=== PATIENT | female | born 1940 | race Caucasian/White ===

== ENCOUNTER 2016-09-14 09:48 | Inpatient (IN) | payer MEDICARE, OTHER ==
[2016-09-14] MEDS ORDERED: Acetaminophen 325 MG Tab PO PRN (11:19)
[2016-09-14] MEDS ORDERED: Ondansetron 4 MG Tab.DIS PO PRN (11:19)
[2016-09-14] MEDS ORDERED: Sodium Chloride 0.9% 10 ML Syringe FLUSH PRN (11:19)
[2016-09-14] MEDS ORDERED: Sodium Chloride 0.9% 1,000 ML IV SCH (11:30)
[2016-09-14] MEDS: cefTRIAXone 1 GM in Sodium Chloride 0.9% 50 ML IV SCH (12:25)
[2016-09-14] MEDS: NS + KCl 20mEq/L 1,000 ML IV SCH ×2 (12:29→20:56)
--- NOTE | 2016-09-14 12:42 | PCM.HP ---
H&P History of Present Illness - General Date of Service: 09/14/16 Admit Problem/Dx: Admission Diagnosis/Problem Admission Diagnosis/Problem Fever Source of Information: Patient History Limitations: Reports: No limitations - History of Present Illness Initial Comments - Free Text/Narative: This is a 75-year-old female patient that presented to the clinic to see Dr. Jules today. She has 2 day history of fevers, chills, diaphoresis. She denies nasal congestion, sore throat, cough. She states she says her shortness of breath for about 4 months. She recently had a cardiac workup that was negative. She had a CBC and UA in the clinic. The CBC was normal and the UA showed a solid of microscopic hematuria. No pyuria. She had chest x-ray that was reported as normal by Dr. Jules. She's had no exposures. She had one episode of emesis. She has some epigastric pain. No diarrhea and some constipation. No dysuria, pyuria, hematuria, vaginal discharge. Epigastric Pain Score (Numeric/FACES): 1 - Related Data Allergies/Adverse Reactions: Allergies Allergy/AdvReac Type Severity Reaction Status Date / Time azithromycin Allergy Nausea and Verified 09/14/16 10:48 Vomiting Home Medications: Home Meds Ascorbate Calcium [Vitamin C] 1,000 mg PO BID 11/14/13 [History] Aspirin [Adult Low Dose Aspirin EC] 81 mg PO BEDTIME 11/14/13 [History] Benazepril [Lotensin] 40 mg PO DAILY 11/14/13 [History] Calcium Carbonate/Vitamin D3 [Caltrate 600+D] 1 tab PO BID 11/14/13 [History] Docusate Sodium [Colace] 100 mg PO BEDTIME 11/14/13 [History] Ketotifen [Ketotifen 0.025% Ophth Soln] 1 drop EYEBOTH BID 11/14/13 [History] Multivitamin [Multivitamins] 1 each PO DAILY 11/14/13 [History] Atenolol/Chlorthalidone [Tenoretic 100] 1 tab PO DAILY 09/14/16 [History] Fish Oil/DHA/EPA [Fish Oil 1,200 MG] 1,200 mg PO BID 09/14/16 [History] Glucosam/Chondroit/C/Manganese [Cosamin Ds Capsule] 1 tab PO BID 09/14/16 [ History] L.acidoph,Paracasei, B.lactis [Probiotic] 1 each PO DAILY 09/14/16 [History] Magnesium Oxide/Mag AA Chelate [Magnesium] 300 mg PO DAILY 09/14/16 [History] Potassium Chloride [Klor-Con 10] 1 tab PO DAILY 09/14/16 [History] Rosuvastatin [Crestor] 10 mg PO BEDTIME 09/14/16 [History] amLODIPine [Norvasc] 7.5 mg PO DAILY 09/14/16 [History] hydrALAZINE [Apresoline] 25 mg PO BID 09/14/16 [History] Past Medical History Cardiovascular History: Reports: Hypertension Gastrointestinal History: Reports: Hemorrhoids Genitourinary History: Reports: Urinary incontinence [employer] History: Reports: Musculoskeletal History: Reports: Osteoarthritis Endocrine/Metabolic History: Reports: Obesity/BMI 30+ - Infectious Disease History Infectious Disease History: Reports: Chicken pox, Measles, Mumps, Shingles - Past Surgical History HEENT Surgical History: Reports: Cataract surgery, Detached retina GI Surgical History: Reports: Colonoscopy Female Surgical History: Reports: Hysterectomy Social & Family History - Family History Family Medical History: Noncontributory - Tobacco Use Smoking Status *Q: Never Smoker Second Hand Smoke Exposure: No - Caffeine Use Caffeine Use: Reports: Tea Other Caffeine Use: 1-2 cups - Alcohol Use Days Per Week of Alcohol Use: 0 - Recreational Drug Use Recreational Drug Use: No H&P Review of Systems - Review of Systems: Review Of Systems: See Below General: Reports: fever, chills, weakness, fatigue, night sweats, diaphoresis, decreased appetite, weight loss HEENT: Reports: no symptoms Pulmonary: Reports: Shortness of Breath. Denies: Wheezing, Pleuritic Chest Pain , Cough, Sputum, Hemoptysis Cardiovascular: Reports: no symptoms Gastrointestinal: Reports: Abdominal pain, Constipation, Vomiting. Denies: Black stool, Bloody stool, Difficulty swallowing, Hematochezia, Melena, Nausea Genitourinary: Reports: other (Incontinence that is chronic) Musculoskeletal: Reports: no symptoms, other (Arthralgia but no myalgias) Skin: Reports: no symptoms Psychiatric: Reports: no symptoms Neurological: Reports: No Symptoms Hematologic/Lymphatic: Reports: no symptoms Immunologic: Reports: no symptoms Exam - Exam Exam: See Below - Vital Signs Vital Signs: Last Vital Signs Temp 98.8 F 09/14/16 10:08 Pulse 59 L 09/14/16 10:08 Resp 16 09/14/16 10:08 BP 134/54 L 09/14/16 10:08 Pulse Ox 94 L 09/14/16 10:08 Weight: 203 lb 14.4 oz - Exam General: alert, oriented, cooperative. No: mild distress, moderate distress HEENT: PERRLA, Hearing intact, Mucosa moist & pink, Nares patent, Normal nasal septum, Posterior pharynx clear, Conjunctiva clear, EOMI, EACs clear, TMs clear Neck: supple, trachea midline. No: carotid bruit Lungs: Clear to auscultation, Normal respiratory effort. No: Rales, Rhonchi Cardiovascular: regular rate, regular rhythm, normal S1, normal S2. No: systolic murmur, diastolic murmur Abdomen: normal bowel sounds, soft, tenderness (Epigastrium). No: organomegaly , guarding, rigidity, rebound Back Exam: normal inspection, full range of motion Extremities: normal inspection. No: edema Skin: warm, dry, intact. No: rash, ecchymosis, wound Neuro Extensive - Mental Status: alert, oriented x3, normal mood/affect, normal cognition Neuro Extensive - Motor, Sensory, Reflexes: normal gait Psychiatric: alert, normal affect, normal mood - Patient Data Lab Results last 24 hrs: Laboratory Results - last 24 hr 09/14/16 09/14/16 Range/Units 11:40 11:40 D-Dimer, Quantitative 1920 H (100-400) ng/mL Sodium 123 L (135-145) mmol/L Potassium 2.5 L* D (3.5-5.3) mmol/L Chloride 90 L D (100-110) mmol/L Carbon Dioxide 25 (23-29) mmol/L BUN 14 (8-23) mg/dL Creatinine 0.6 (0.6-1.3) mg/dL Est Cr Clr Drug Dosing 59.98 mL/min Estimated GFR (MDRD) > 60 (>60) BUN/Creatinine Ratio 23.3 H (9-20) Glucose 151 H (80-116) mg/dL Calcium 8.6 (8.6-10.2) mg/dL Total Bilirubin 0.9 (0.1-1.3) mg/dL AST 65 H D (5-27) IU/L ALT 64 H D (14-26) IU/L Alkaline Phosphatase 51 L (56-112) IU/L Total Protein 7.3 (6.0-8.0) g/dL Albumin 3.4 (3.2-4.6) g/dL Globulin 3.9 g/dL Albumin/Globulin Ratio 0.9 Result Diagrams: 09/14/16 11:40 *Q Meaningful Use (ADM) - VTE *Q VTE Criteria *Q: - Stroke *Q Stroke Criteria *Q: - AMI *Q AMI Criteria *Q: - Problem List (1) Fever and chills SNOMED Code(s): 314159505 ICD Code: R50.9 - FEVER, UNSPECIFIED Status: Acute Current Visit: Yes (2) Epigastric pain SNOMED Code(s): 58812961 ICD Code: R10.13 - EPIGASTRIC PAIN Status: Acute Current Visit: Yes Problem List Initiated/Reviewed/Updated: Yes Orders Last 24hrs: Active Orders 24 hr Category Date Time Status Patient Status [ADT] Routine ADT 09/14/16 11:19 Active Height and Weight [RC] DAILY Care 09/14/16 11:19 Active May Shower [RC] ASDIRECTED Care 09/14/16 11:19 Active Oxygen Therapy [RC] PRN Care 09/14/16 11:19 Active Up With Assistance [RC] ASDIRECTED Care 09/14/16 11:19 Active VTE/DVT Education [RC] Per Unit Routine Care 09/14/16 11:19 Active Vital Signs [RC] Q4H Care 09/14/16 11:19 Active Regular Diet [DIET] Diet 09/14/16 Lunch Active CULTURE BLOOD [BC] Urgent Lab 09/14/16 11:40 Received CULTURE BLOOD [BC] Urgent Lab 09/14/16 11:45 Received CULTURE URINE [RM] Stat Lab 09/14/16 11:19 Uncollected Acetaminophen [Tylenol] Med 09/14/16 11:19 Active 650 mg PO Q4H PRN Ascorbic Acid [Vitamin C] Med 09/14/16 21:00 Active 1,000 mg PO BID Aspirin [Halfprin] Med 09/14/16 21:00 Active 81 mg PO BEDTIME Benazepril [Lotensin] Med 09/15/16 09:00 Active 40 mg PO DAILY Calcium Carbonate/Vitamin D3 [Calcium Carbonate/Vitamin Med 09/14/16 21:00 Active D 1250 MG-200 Unit] 1 tab PO BID Docusate Sodium [Colace] Med 09/14/16 21:00 Active 100 mg PO BEDTIME Ketotifen [Ketotifen 0.025% Ophth Soln] Med 09/14/16 21:00 Active 0 ml EYEBOTH BID Multivitamins [Tab-A-Sarath] Med 09/15/16 09:00 Active 1 tab PO DAILY NS + KCl 20mEq/L [Normal Saline with 20 mEq KCl] 1,000 Med 09/14/16 12:15 Active ml IV Q8H Ondansetron [Zofran ODT] Med 09/14/16 11:19 Active 4 mg PO Q4H PRN Sodium Chloride 0.9% [Saline Flush] Med 09/14/16 11:19 Active 10 ml FLUSH ASDIRECTED PRN cefTRIAXone [Rocephin] 1 gm Med 09/14/16 12:00 Active Sodium Chloride 0.9% [Normal Saline] 50 ml IV Q24H Blood Culture x2 Reflex Set [OM.PC] Urgent Oth 09/14/16 11:19 Ordered Peripheral IV Insertion Adult [OM.PC] Routine Oth 09/14/16 11:19 Ordered Sequential Compression Device [OM.PC] Per Unit Routine Oth 09/14/16 11:20 Ordered Resuscitation Status Routine Resus Stat 09/14/16 11:19 Ordered Medication Orders Acetaminophen (Tylenol) 650 mg PO Q4H PRN PRN Reason: Pain (Mild 1-3)/fever Ascorbic Acid (Vitamin C) 1,000 mg PO BID [facility] Aspirin (Halfprin) 81 mg PO BEDTIME [facility] Benazepril HCl (Lotensin) 40 mg PO DAILY [facility] Calcium Carbonate (Calcium Carbonate/Vitamin D 1250 Mg-200 Unit) 1 tab PO BID [facility] Docusate Sodium (Colace) 100 mg PO BEDTIME [facility] Ceftriaxone Sodium 1 gm/ (Sodium Chloride) 50 mls @ 100 mls/hr IV Q24H [facility] Last Admin: 09/14/16 12:25 Dose: 100 mls/hr Potassium Chloride/Sodium Chloride (Normal Saline With 20 Meq Kcl) 1,000 mls @ 125 mls/hr IV Q8H [facility] Last Admin: 09/14/16 12:29 Dose: 125 mls/hr Ketotifen Fumarate (Ketotifen 0.025% Ophth Soln) 0 ml EYEBOTH BID [facility] Multivitamins/Minerals/Vitamin C (Tab-A-Sarath) 1 tab PO DAILY [facility] Ondansetron HCl (Zofran Odt) 4 mg PO Q4H PRN PRN Reason: nausea, able to take PO Sodium Chloride (Saline Flush) 10 ml FLUSH ASDIRECTED PRN PRN Reason: Keep Vein Open Last Admin: 09/14/16 12:24 Dose: 10 ml Assessment/Plan Comment:: [address] an inpatient. Dr. Jules is worried about sepsis. 2. Start Rocephin 1 g IV 3. Blood cultures x2, chem 12. CBC was done in the clinic which is normal. UA in the clinic only showed microscopic hematuria. 4. Discussed the best rectus fascia is a full code. 5. BTE prophylaxis 6. D-dimer because of shortness of breath. Is positive consider CT of the lungs. 7. Consider CT of the abdomen and or ultrasound depending on liver functions. 8. IV fluids with a regular diet. 8. Up ad lionel.
[2016-09-14] MEDS: Enoxaparin 30 MG/0.3 ML Syringe SUBCUT SCH (14:32)
[2016-09-14] MEDS ORDERED: Iopamidol 755 Mg/ML 100 ML Bottle IV ONE (14:36)
[2016-09-14] MEDS: Calcium Carbonate/Vitamin D3 1250 MG-200 Unit Tab PO SCH (20:14)
[2016-09-14] MEDS: Docusate Sodium 100 MG Cap PO SCH (20:14)
[2016-09-14] MEDS: Aspirin 81 MG Tab.EC PO SCH (20:15)
[2016-09-14] MEDS: Ketotifen 0.025% Ophth Soln 5 ML Bottle EYEBOTH SCH (20:15)
[2016-09-14] MEDS: Ascorbic Acid 500 MG Tab PO SCH (20:16)
[2016-09-14] MEDS: hydrALAZINE 25 MG Tab PO SCH (20:21)
[2016-09-15] MEDS: NS + KCl 20mEq/L 1,000 ML IV SCH ×4 (05:14→19:14)
--- NOTE | 2016-09-15 08:02 | CT ---
INDICATION: Fever, chills, shortness of breath times four months, increased D- dimer, question PE. CT ANGIOGRAPHY OF CHEST WITH CONTRAST: Spiral 1.25 mm axial sections were obtained through the chest with sagittal and coronal reconstructions and 100 mL Isovue 370 at 2.5 mL/second and revealed the heart to be somewhat enlarged with coronary artery disease - calcifications. There is some increased density at the anterolateral lung base - left lower lobe , which may represent atelectasis, fibrosis, or possibly minimal pneumonia and localized pleural reaction. Fibrosis is felt to be most likely, as other areas of subpleural density compatible with fibrosis are noted in the middle lobe and lower lobes in general. Otherwise, a definite active infiltrate or effusion was not identified. No nodular masses were identified. No evidence of pulmonary embolus was seen. No mediastinal masses were suggested. Calcifications are noted at the aortic arch. IMPRESSION: 1. No evidence of pulmonary embolus. 2. Cannot exclude minimal patchy pneumonia, fibrosis, atelectasis, and possibly minimal pleuritis at the left lung base - anterolateral aspect of the anterior basilar segment of the left lower lobe at the lingula. Total exam DLP = 2029.59 mGy-cm. Report was called to Dr. Rousseau at 1753 hours on 09/14/2016. [facility]
--- NOTE | 2016-09-15 08:38 | CT ---
INDICATION: Abdominal pain with fever and chills, shortness of breath times four months, increased D-dimer, question PE. CT ABDOMEN AND CT PELVIS: Spiral 2.5 mm axial sections were obtained through the abdomen and pelvis with oral and IV contrast with sagittal and coronal reconstructions. A tiny probable benign cyst is noted at the anterior aspect of the lower portion of the right lobe of the liver with no other focal defects, enlargement , or abnormal density suggested, involving the liver. No gallstones are demonstrated. No finding to strongly suggest cholecystitis was seen. There are suggested tiny and small cysts in the head of the pancreas of questionable significance. They are small enough to be difficult to categorize as simple cysts. Followup with CT with contrast in 3 months is recommended to evaluate for change. The pancreas was otherwise unremarkable. The adrenal glands and spleen appeared normal. The left kidney showed some evidence of renal cortical scarring with focal defects in the cortex. At the right kidney, there are low density lesions, which may represent cystic structures in the mid pole area, measuring together approximately 26.5 mm. The more posterior low density lesion measured 15.4 mm. The more anterior lesion in the right kidney mid pole measured 11.5 mm. A density of 30 Hounsfield units was noted, raising question of other than simple cyst. However, likely these do represent cystic structures. They could be followed up also. A much smaller almost definite benign cystic structure is noted off the medial anterior cortex of the lower pole of the right kidney. The right kidney was otherwise unremarkable. No evidence of obstructive uropathy was identified, although there is asymmetry in the ureters and pyelocaliceal systems, the right being more prominent than the left. This may be a normal variant. Urinary bladder appeared essentially normal. The uterus is absent compatible with history of its removal. What appears to be the appendix was noted on coronal image #72 and appears normal. There is a complex mass in the upper middle pelvis on the left, along the cranial left lateral aspect of the urinary bladder, which measures transversely 48.3 mm, anterior-posteriorly 71.3 mm, and in the coronal projection measures 50 x 53.6 mm craniocaudad and transversely. Air fluid levels are noted within this mass, relatively solid components that are relatively low in density - 18 Hounsfield units are noted, and there does appear to be some calcification in the mass. Etiology is indeterminate. This could represent a teratoma. The possibility of an abscess formation would be a consideration. An infected teratoma would also be a consideration. At any rate, in this age group, the possibility of malignancy would also be a consideration. If an old CT scan of the pelvis is available for comparison, it should be of further diagnostic benefit. This finding could represent ovarian neoplasm, such as a teratoma. No other mass lesions, organomegaly, or free fluid collections were identified in the abdomen or pelvis. Calcifications are noted in the abdominal aorta, iliac, and femoral arteries, right renal artery, and celiac axis. IMPRESSION: Complex mass in the upper left pelvis adjacent to the urinary bladder, craniolateral left aspect. Neoplastic process, possibly even carcinoma , cannot be excluded. 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 Air fluid level within it may represent fat fluid level or possibly abscess formation. Further workup certainly may be warranted. Total exam DLP = 2029.59 mGy-cm. Report was called to Dr. Rousseau at 1753 hours on 09/14/2016. [facility]
--- NOTE | 2016-09-15 08:41 | PCM.PN ---
- General Info Date of Service: 09/15/16 Admission Dx/Problem (Free Text): Patient states that she had one episode of chills with some diaphoresis last night. Then it went away. She's had a little headache but no joint aches. Her stomach pain in the epigastrium is improved. She denies nasal congestion, ear pain, sore throat, cough, diarrhea, dysuria, pyuria or hematuria. She has chronic urinary incontinence. She states she has not had an appetite for over a month when she had a URI. She states URI did resolve. - Patient Data Vitals - most recent: Last Vital Signs Temp 99.3 F 09/15/16 04:00 Pulse 100 09/15/16 04:00 Resp 18 09/15/16 04:00 BP 118/54 L 09/15/16 04:00 Pulse Ox 96 09/15/16 04:00 Weight - most recent: 203 lb 14.4 oz I&O - last 24 hours: Intake & Output 09/14/16 09/15/16 09/15/16 22:59 06:59 14:59 Intake Total 1250 970 Output Total 450 Balance 800 970 Lab Results last 24 hrs: Laboratory Results - last 24 hr 09/14/16 09/14/16 09/14/16 Range/Units 11:40 11:40 11:40 WBC (4.5-12.0) X10-3/uL RBC (3.23-5.20) x10(6)uL Hgb (11.5-15.5) g/dL Hct (30.0-51.3) % MCV (80-96) fL MCH (27.7-33.6) pg MCHC (32.2-35.4) g/dL RDW (11.5-15.5) % Plt Count (125-369) X10(3)uL MPV (7.4-10.4) fL Add Manual Diff Neutrophils % (Manual) (46-82) % Band Neutrophils % (0-6) % Lymphocytes % (Manual) (13-37) % Monocytes % (Manual) (4-12) % Eosinophils % (Manual) (0-5) % D-Dimer, Quantitative 1920 H (100-400) ng/mL Sodium 123 L (135-145) mmol/L Potassium 2.5 L* D (3.5-5.3) mmol/L Chloride 90 L D (100-110) mmol/L Carbon Dioxide 25 (23-29) mmol/L BUN 14 (8-23) mg/dL Creatinine 0.6 (0.6-1.3) mg/dL Est Cr Clr Drug Dosing 59.98 mL/min Estimated GFR (MDRD) > 60 (>60) BUN/Creatinine Ratio 23.3 H (9-20) Glucose 151 H (80-116) mg/dL Calcium 8.6 (8.6-10.2) mg/dL Total Bilirubin 0.9 (0.1-1.3) mg/dL AST 65 H D (5-27) IU/L ALT 64 H D (14-26) IU/L Alkaline Phosphatase 51 L (56-112) IU/L Total Protein 7.3 (6.0-8.0) g/dL Albumin 3.4 (3.2-4.6) g/dL Globulin 3.9 g/dL Albumin/Globulin Ratio 0.9 Amylase 18 L (28-100) U/L 09/15/16 09/15/16 Range/Units 06:20 06:20 WBC 5.6 (4.5-12.0) X10-3/uL RBC 4.36 (3.23-5.20) x10(6)uL Hgb 12.7 (11.5-15.5) g/dL Hct 37.3 (30.0-51.3) % MCV 85.5 (80-96) fL MCH 29.2 (27.7-33.6) pg MCHC 34.2 (32.2-35.4) g/dL RDW 12.9 (11.5-15.5) % Plt Count 147 (125-369) X10(3)uL MPV 8.0 (7.4-10.4) fL Add Manual Diff Yes Neutrophils % (Manual) 83 H (46-82) % Band Neutrophils % 4 (0-6) % Lymphocytes % (Manual) 6 L (13-37) % Monocytes % (Manual) 4 (4-12) % Eosinophils % (Manual) 3 (0-5) % D-Dimer, Quantitative (100-400) ng/mL Sodium 126 L (135-145) mmol/L Potassium 2.7 L* (3.5-5.3) mmol/L Chloride 95 L D (100-110) mmol/L Carbon Dioxide 24 (23-29) mmol/L BUN 8 (8-23) mg/dL Creatinine 0.5 L (0.6-1.3) mg/dL Est Cr Clr Drug Dosing 71.98 mL/min Estimated GFR (MDRD) > 60 (>60) BUN/Creatinine Ratio 16.0 (9-20) Glucose 138 H (80-116) mg/dL Calcium 8.1 L (8.6-10.2) mg/dL Total Bilirubin 0.8 (0.1-1.3) mg/dL AST 76 H D (5-27) IU/L ALT 78 H D (14-26) IU/L Alkaline Phosphatase 59 (56-112) IU/L Total Protein 6.6 (6.0-8.0) g/dL Albumin 3.0 L (3.2-4.6) g/dL Globulin 3.6 g/dL Albumin/Globulin Ratio 0.8 Amylase 16 L (28-100) U/L Med Orders - Current: Current Medications Acetaminophen (Tylenol) 650 mg PO Q4H PRN PRN Reason: Pain (Mild 1-3)/fever Last Admin: 09/14/16 20:22 Dose: 650 mg Amlodipine Besylate (Norvasc) 5 mg PO DAILY [facility] Amlodipine Besylate (Norvasc) 2.5 mg PO DAILY [facility] Ascorbic Acid (Vitamin C) 1,000 mg PO BID [facility] Last Admin: 09/14/16 20:16 Dose: Not Given Aspirin (Halfprin) 81 mg PO BEDTIME [facility] Last Admin: 09/14/16 20:15 Dose: 81 mg Atenolol (Tenormin) 100 mg PO DAILY [facility] Benazepril HCl (Lotensin) 40 mg PO DAILY [facility] Calcium Carbonate (Calcium Carbonate/Vitamin D 1250 Mg-200 Unit) 1 tab PO BID [facility] Last Admin: 09/14/16 20:14 Dose: Not Given Chlorthalidone (Chlorthalidone) 25 mg PO DAILY [facility] Docusate Sodium (Colace) 100 mg PO BEDTIME [facility] Last Admin: 09/14/16 20:14 Dose: 100 mg Enoxaparin Sodium (Lovenox) 30 mg SUBCUT Q24H [facility] Last Admin: 09/14/16 14:32 Dose: 30 mg Hydralazine HCl (Apresoline) 25 mg PO BID [facility] Last Admin: 09/14/16 20:21 Dose: 25 mg Ceftriaxone Sodium 1 gm/ (Sodium Chloride) 50 mls @ 100 mls/hr IV Q24H [facility] Last Admin: 09/14/16 12:25 Dose: 100 mls/hr Potassium Chloride/Sodium Chloride (Normal Saline With 20 Meq Kcl) 1,000 mls @ 70 mls/hr IV Q8H [facility] Last Admin: 09/15/16 05:14 Dose: 125 mls/hr Azithromycin 500 mg/ Sodium (Chloride) 250 mls @ 250 mls/hr IV ONETIME ONE Stop: 09/15/16 09:20 Azithromycin 250 mg/ Sodium (Chloride) 250 mls @ 250 mls/hr IV Q24H [facility] Ketotifen Fumarate (Ketotifen 0.025% Ophth Soln) 0 ml EYEBOTH BID [facility] Last Admin: 09/14/16 20:15 Dose: Not Given Multivitamins/Minerals/Vitamin C (Tab-A-Sarath) 1 tab PO DAILY [facility] Ondansetron HCl (Zofran Odt) 4 mg PO Q4H PRN PRN Reason: nausea, able to take PO Potassium Chloride (Klor-Con 10) 20 meq PO DAILY [facility] Sodium Chloride (Saline Flush) 10 ml FLUSH ASDIRECTED PRN PRN Reason: Keep Vein Open Last Admin: 09/14/16 12:24 Dose: 10 ml Discontinued Medications Sodium Chloride (Normal Saline) 1,000 mls @ 125 mls/hr IV ASDIRECTED [facility] Iopamidol (Isovue-370 (76%)) 100 ml IV . DIRECTED ONE Stop: 09/14/16 14:37 Last Admin: 09/14/16 15:22 Dose: 100 ml Potassium Chloride (Klor-Con 10) 10 meq PO DAILY [facility] - Exam General: alert, oriented, cooperative Neck: supple Lungs: Clear to auscultation, Normal respiratory effort. No: Crackles, Rales, Rhonchi Cardiovascular: Regular Rate, Regular Rhythm, No Murmurs Abdomen: bowel sounds present, soft, no tenderness, no distension. No: tenderness Extremities: no edema Skin: warm, dry, intact Psy/Mental Status: alert, normal affect, normal mood - Problem List & Annotations (1) Fever and chills SNOMED Code(s): 811320043 Code(s): R50.9 - FEVER, UNSPECIFIED Status: Acute Current Visit: Yes (2) Epigastric pain SNOMED Code(s): 36598360 Code(s): R10.13 - EPIGASTRIC PAIN Status: Acute Current Visit: Yes (3) Pneumonia SNOMED Code(s): 162476115 Code(s): J18.9 - PNEUMONIA, UNSPECIFIED ORGANISM Status: Acute Current Visit: Yes Qualifiers: Qualified Code(s): J18.1 - Lobar pneumonia, unspecified organism (4) Elevated LFTs SNOMED Code(s): 063741029 Code(s): R94.5 - ABNORMAL RESULTS OF LIVER FUNCTION STUDIES Status: Acute Current Visit: Yes (5) Hyponatremia SNOMED Code(s): 95603586 Code(s): E87.1 - HYPO-OSMOLALITY AND HYPONATREMIA Status: Acute Current Visit: Yes (6) Hypokalemia SNOMED Code(s): 16571561 Code(s): E87.6 - HYPOKALEMIA Status: Acute Current Visit: Yes (7) Teratoma SNOMED Code(s): 661080037, 574347117, 202881337 Code(s): D48.9 - NEOPLASM OF UNCERTAIN BEHAVIOR, UNSPECIFIED Status: Acute Current Visit: Yes - Problem List Review Problem List Initiated/Reviewed/Updated: Yes - My Orders Last 24 Hours: My Active Orders 09/14/16 11:19 Patient Status [ADT] Routine Height and Weight [RC] 25 September Shower [RC] ASDIRECTED Oxygen Therapy [RC] PRN Up With Assistance [RC] ASDIRECTED Vital Signs [RC] QPM Acetaminophen [Tylenol] 650 mg PO Q4H PRN Ondansetron [Zofran ODT] 4 mg PO Q4H PRN Sodium Chloride 0.9% [Saline Flush] 10 ml FLUSH ASDIRECTED PRN Blood Culture x2 Reflex Set [OM.PC] Urgent Peripheral IV Insertion Adult [OM.PC] Routine Resuscitation Status Routine 09/14/16 11:20 Sequential Compression Device [OM.PC] Per Unit Routine 09/14/16 11:40 CULTURE BLOOD [BC] Urgent 09/14/16 11:45 CULTURE BLOOD [BC] Urgent 09/14/16 12:00 cefTRIAXone [Rocephin] 1 gm Sodium Chloride 0.9% [Normal Saline] 50 ml IV Q24H 09/14/16 12:15 NS + KCl 20mEq/L [Normal Saline with 20 mEq KCl] 1,000 ml IV Q8H 09/14/16 12:43 Abdomen Pelvis w Cont [CT] Routine 09/14/16 12:45 Enoxaparin [Lovenox] 30 mg SUBCUT Q24H 09/14/16 15:35 CULTURE URINE [RM] Stat 09/14/16 21:00 Ascorbic Acid [Vitamin C] 1,000 mg PO BID Aspirin [Halfprin] 81 mg PO BEDTIME Calcium Carbonate/Vitamin D3 [Calcium Carbonate/Vitamin D 1250 MG-200 Unit] 1 tab PO BID Docusate Sodium [Colace] 100 mg PO BEDTIME Ketotifen [Ketotifen 0.025% Ophth Soln] 0 ml EYEBOTH BID hydrALAZINE [Apresoline] 25 mg PO BID 09/14/16 Lunch Regular Diet [DIET] 09/15/16 08:19 HEPATITIS PANEL,ACUTE [REF] Routine INFLUENZA A+B AG SCREEN [RM] Routine 09/15/16 08:21 Azithromycin [Zithromax] 500 mg Sodium Chloride 0.9% [Normal Saline] 250 ml IV ONETIME 09/15/16 09:00 Atenolol [Tenormin] 100 mg PO DAILY Benazepril [Lotensin] 40 mg PO DAILY Chlorthalidone 25 mg PO DAILY Multivitamins [Tab-A-Sartah] 1 tab PO DAILY Potassium Chloride [Klor-Con 10] 20 meq PO DAILY amLODIPine [Norvasc] 2.5 mg PO DAILY amLODIPine [Norvasc] 5 mg PO DAILY 09/16/16 08:30 Azithromycin [Zithromax] 250 mg Sodium Chloride 0.9% [Normal Saline] 250 ml IV Q24H - Plan Plan:: 1. CT scan reports a 5 x 7 cm left pelvic mass most likely a teratoma., Liver cyst and possible kidney cyst. Chest CT shows either pneumonia or fibrosis in the left lower lobe. 2. Continue Rocephin and add Zithromax. 3. Repeat Chem-12 in the a.m., hepatitis panel, influenza A/B. 4. Decrease IV fluids at 70 mL an hour and vital secretion. 5. Increase ambulation up in the chair. 6. Increase potassium oral 20 mEq 3 times a day. Patient normally takes 10 mEq once a day. 7. Will need to have DENTAL ASSOCIATE consultation a patient with a teratoma/pelvic mass. 8. Discussed hypernatremia with the patient. She states she's chronically hyponatremic. I told her it can be coming from her chlorothiaziadone. She states when she stops her diuretic that she swells due to her Norvasc. Her Norvasc works best for her blood pressure. So we will just use some IV fluids for sodium at this time. Recheck in the morning. Continue her diuretic and Norvasc. She sees cardiology for hypertension. 9. Zithromax has an allergy of GI upset. If the patient states that she can take IV will proceed.
[2016-09-15] MEDS: Calcium Carbonate/Vitamin D3 1250 MG-200 Unit Tab PO SCH ×2 (08:58→20:59)
[2016-09-15] MEDS: hydrALAZINE 25 MG Tab PO SCH ×2 (08:58→20:58)
[2016-09-15] MEDS: Ketotifen 0.025% Ophth Soln 5 ML Bottle EYEBOTH SCH ×2 (08:59→21:00)
[2016-09-15] MEDS ORDERED: Azithromycin 500 MG in Sodium Chloride 0.9% 250 ML IV ONE (09:00)
[2016-09-15] MEDS: Ascorbic Acid 500 MG Tab PO SCH ×2 (09:00→21:00)
[2016-09-15] MEDS ORDERED: Chlorthalidone 25 MG Tab PO SCH (09:00)
[2016-09-15] MEDS ORDERED: Potassium Chloride 10 MEQ Tab.ER PO SCH (09:00)
[2016-09-15] MEDS ORDERED: Potassium Chloride 20 MEQ Tab.ER PO SCH (09:00)
[2016-09-15] MEDS: amLODIPine 5 MG Tab PO SCH (09:00)
[2016-09-15] MEDS: amLODIPine 2.5 MG Tab PO SCH (09:00)
[2016-09-15] MEDS: Multivitamin Tab PO SCH (09:00)
[2016-09-15] MEDS ORDERED: Polyethylene Glycol 3350 Powder 17 GM Packet PO ONE (10:02)
[2016-09-15] MEDS: cefTRIAXone 1 GM in Sodium Chloride 0.9% 50 ML IV SCH (13:27)
[2016-09-15] MEDS: Enoxaparin 30 MG/0.3 ML Syringe SUBCUT SCH (13:28)
[2016-09-15] MEDS: Aspirin 81 MG Tab.EC PO SCH (20:59)
[2016-09-15] MEDS: Docusate Sodium 100 MG Cap PO SCH (20:59)
[2016-09-15] MEDS: Rosuvastatin 10 MG Tab PO SCH (21:48)
[2016-09-16] MEDS: hydrALAZINE 25 MG Tab PO SCH ×2 (08:56→20:48)
[2016-09-16] MEDS: Calcium Carbonate/Vitamin D3 1250 MG-200 Unit Tab PO SCH ×2 (08:57→22:03)
[2016-09-16] MEDS: amLODIPine 5 MG Tab PO SCH (08:57)
[2016-09-16] MEDS: Ketotifen 0.025% Ophth Soln 5 ML Bottle EYEBOTH SCH ×2 (08:57→22:01)
[2016-09-16] MEDS: Potassium Chloride 20 MEQ Tab.ER PO SCH ×4 (08:57→22:00)
[2016-09-16] MEDS: amLODIPine 2.5 MG Tab PO SCH (08:58)
[2016-09-16] MEDS: Multivitamin Tab PO SCH (08:58)
[2016-09-16] MEDS: Ascorbic Acid 500 MG Tab PO SCH ×2 (08:59→20:50)
[2016-09-16] MEDS ORDERED: Azithromycin 250 MG in Sodium Chloride 0.9% 250 ML IV SCH (09:00)
[2016-09-16] MEDS: NS + KCl 20mEq/L 1,000 ML IV SCH ×2 (09:05→23:45)
[2016-09-16] MEDS: cefTRIAXone 1 GM in Sodium Chloride 0.9% 50 ML IV SCH (11:40)
--- NOTE | 2016-09-16 11:41 | PN ---
DATE SEEN: 09/16/2016 SUBJECTIVE: This is a 75-year-old female with a previous history of hypertension, obesity, hyperlipidemia, and osteoarthritis, who was seen today for followup of her weakness. She was initially admitted for low-grade fever, generalized weakness, and the possibility of a left lower lobe pneumonia. White count was normal, but she was found to be rather markedly hyponatremic and hypokalemic. IV fluids have been initiated along with IV antibiotics. She says her strength is slowly improving. Her appetite has also slowly improved. She has had no cough and no longer has a fever. Denies any chills, nausea, vomiting, or diarrhea. No dysuria. Gross hematuria has been noted. Because of microscopic hematuria and this low-grade fever, CT scan of her abdomen was done. She has a mass in the left pelvis with what appears to be a teratoma but no other abnormalities were noted. She has been informed of this and CERTIFIED FORKLIFT OPERATOR consultation will be obtained in the future. At this time, she says she is doing better, although she is still quite weak. No other new symptoms have been noted. OBJECTIVE: GENERAL: She appears to be quite comfortable, at this time in no acute distress. VITAL SIGNS: Afebrile. Blood pressure today was 155/67, pulse is 64 and regular, weight is 207.4 pounds. HEENT: Unremarkable. Mucous membranes are pink and moist and there is no jugular venous distention. Thyroid was not enlarged. CHEST: Clear. No wheezes or retractions were noted. She has a few crackles in the left base, but these are minimal. The right side is completely clear. CARDIOVASCULAR: Revealed a normal S1 and S2 with a regular rhythm. There was no gallop or rub. ABDOMEN: Obese, but soft without specific point tenderness. There was no rebound or rigidity. Bowel sounds are normal. EXTREMITIES: Also unremarkable. No clubbing. No edema. Peripheral pulses were strong and equal bilaterally. It should be noted that the patient had a CT of her chest because of elevated D-dimer. There was no evidence of pulmonary embolus, but there was evidence of patchy pneumonia in the left base. She had a white count yesterday of 5600 with a little bit of left shift. Her hemoglobin was 12.7. Her sodium on admission was 123, today it is up to 128; potassium was 2.5 on admission, it remains at 2.5 despite aggressive replacement therapy. Her creatinine is 0.5, BUN of 6. Her on glucose was 125 and calcium was 8.3. IMPRESSION: 1. Left lower lobe pneumonia, improving. 2. Significant hyponatremia and hyperkalemia, presumably from her chlorthalidone. 3. Labile hypertension. 4. Obesity. 5. Left pelvic mass, presumably a teratoma. PLAN: We will continue IV antibiotics today and we increased her potassium supplementation and discontinued her chlorthalidone. Continue to monitor her electrolytes and if peripheral edema becomes a problem after discontinuing the chlorthalidone, short-acting diuretic such as furosemide or budesonide can be tried. Await the results of cultures, which thus far have been negative, and we will proceed from there. /[id number] /LARISSA
[2016-09-16] MEDS: Enoxaparin 30 MG/0.3 ML Syringe SUBCUT SCH (12:59)
[2016-09-16] MEDS: Aspirin 81 MG Tab.EC PO SCH (20:49)
[2016-09-16] MEDS: Rosuvastatin 10 MG Tab PO SCH (22:03)
[2016-09-16] MEDS: Docusate Sodium 100 MG Cap PO SCH (22:04)
[2016-09-17] MEDS: Ascorbic Acid 500 MG Tab PO SCH ×2 (08:28→22:10)
[2016-09-17] MEDS: amLODIPine 2.5 MG Tab PO SCH (08:29)
[2016-09-17] MEDS: amLODIPine 5 MG Tab PO SCH (08:29)
[2016-09-17] MEDS: Potassium Chloride 20 MEQ Tab.ER PO SCH ×4 (08:30→22:09)
[2016-09-17] MEDS: Ketotifen 0.025% Ophth Soln 5 ML Bottle EYEBOTH SCH ×2 (08:30→20:53)
[2016-09-17] MEDS: hydrALAZINE 25 MG Tab PO SCH ×2 (08:30→20:52)
[2016-09-17] MEDS: Calcium Carbonate/Vitamin D3 1250 MG-200 Unit Tab PO SCH ×2 (08:30→18:05)
[2016-09-17] MEDS ORDERED: Furosemide 40 MG Tab PO SCH (08:30)
[2016-09-17] MEDS: Multivitamin Tab PO SCH (08:30)
--- NOTE | 2016-09-17 11:52 | PN ---
DATE SEEN: 09/17/2016 SUBJECTIVE: This 75-year-old female seen today for followup of her pneumonia, marked hyponatremia, and hypokalemia, hypertension and obesity. She also was found to have a left pelvic mass presumably a teratoma on recent CT scan. She denies any cough, no shortness of breath or chest pain, has had no nausea, vomiting, or diarrhea, has been up and walking and voiding frequently without dysuria, denies any joint pain, swelling, or tenderness. She has had no other difficulties. MEDICATIONS: She is taking her medications as documented. ALLERGIES: Documented. OBJECTIVE: GENERAL: She appears to be in no acute distress. VITAL SIGNS: At this time, she is afebrile. Temp at 0400 hours was 99.9. Blood pressure ranges from 138/64 to 154/83. HEENT: Unremarkable. NECK: Supple. There was no jugular venous distention. Thyroid was not enlarged. Carotid pulses strong and equal without bruits. CHEST: At this time was completely clear. No rales, rhonchi, or wheezes were noted. A few were noted at the left base; but then after a cough these cleared. No retractions were identified. CARDIOVASCULAR: Exam revealed a normal S1 and S2 without murmur, rub, or gallop. An occasional irregular beat was noted. ABDOMEN: Soft, obese, and nontender without organomegaly or masses. Bowel sounds are normal. No bruits were noted. EXTREMITIES: Without clubbing, just a trace edema was noted about the ankles. No ulcerations or areas of breakdown. LABORATORY DATA: Today revealed a sodium 128, potassium of 3.0, creatinine 0.4, BUN of 8, and glucose was 130; but she is getting IV fluids. She had a hepatitis screening done because of some elevated liver functions with an AST of 76 and ALT of 78. On September 15, her alkaline phosphatase, bilirubin were normal. IMPRESSION: 1. Hypokalemia and hyponatremia, slowly improving. 2. Left lower lobe pneumonia, improving. 3. Hypertension. 4. Obesity. 5. Pelvic mass presumably a teratoma. PLAN: We are going to discontinue her IV. We will switch her over from ceftriaxone IV to Augmentin 500 mg p.o. q.12 hours and we will add doxycycline 100 mg b.i.d. She apparently develops severe GI upset with azithromycin to cover her pneumonia. Continue to monitor electrolytes, kidney function, and we will recheck her liver functions. Knee-high KARINE stockings will be used for her peripheral edema along with furosemide 40 mg every other day, because I am sure after discontinuing the chlorthalidone; this is going to get worse especially with her dose of amlodipine. She was comfortable with the plan that was discussed with both the patient and her . We will recheck labs in the morning. /[id number] /MODL
[2016-09-17] MEDS ORDERED: cefTRIAXone 1 GM in Sodium Chloride 0.9% 50 ML IV SCH (12:00)
[2016-09-17] MEDS: Enoxaparin 30 MG/0.3 ML Syringe SUBCUT SCH (12:13)
[2016-09-17] MEDS: Amoxicillin/Clavulanate K 500-125 MG Tab PO SCH (18:03)
[2016-09-17] MEDS: Docusate Sodium 100 MG Cap PO SCH (20:52)
[2016-09-17] MEDS: Aspirin 81 MG Tab.EC PO SCH (20:53)
[2016-09-17] MEDS: Rosuvastatin 10 MG Tab PO SCH (20:53)
[2016-09-17] MEDS: Doxycycline 100 MG Tab PO SCH (20:53)
[2016-09-18] MEDS: Amoxicillin/Clavulanate K 500-125 MG Tab PO SCH (05:55)
[2016-09-18] MEDS: Ketotifen 0.025% Ophth Soln 5 ML Bottle EYEBOTH SCH (08:51)
[2016-09-18] MEDS: hydrALAZINE 25 MG Tab PO SCH (08:51)
[2016-09-18] MEDS: Potassium Chloride 20 MEQ Tab.ER PO SCH ×2 (08:52→13:21)
[2016-09-18] MEDS: amLODIPine 2.5 MG Tab PO SCH (08:53)
[2016-09-18] MEDS: amLODIPine 5 MG Tab PO SCH (08:53)
[2016-09-18] MEDS: Doxycycline 100 MG Tab PO SCH (08:53)
[2016-09-18] MEDS: Multivitamin Tab PO SCH (08:53)
[2016-09-18 08:54] VITALS: BP 153/73
[2016-09-18] MEDS: Ascorbic Acid 500 MG Tab PO SCH (08:54)
[2016-09-18] MEDS: Calcium Carbonate/Vitamin D3 1250 MG-200 Unit Tab PO SCH (11:47)
[2016-09-18] MEDS: Enoxaparin 30 MG/0.3 ML Syringe SUBCUT SCH (11:47)
--- NOTE | 2016-09-18 12:11 | PN ---
DATE SEEN: 09/18/2016 SUBJECTIVE: This 75-year-old female was seen today for followup of her generalized weakness, hypokalemia, hyponatremia. She says she is feeling much better. Her strength has improved, and she has had no nausea, no vomiting, no diarrhea. She says she no longer has any fever, has had no cough. No dysuria or hematuria. She is tolerating the oral antibiotics without difficulties. Her other medications were reviewed. Her blood pressure is under fair control, and she noticed an improvement in her weight since using the furosemide yesterday, has also improved her peripheral edema. OBJECTIVE: GENERAL: She appears to be quite comfortable in no acute distress. Weight is down a couple of pounds. VITAL SIGNS: Blood pressure 153/73, pulse is 61 and regular. HEENT: Unremarkable. NECK: Supple. There is no jugular venous distention. CHEST: Clear. CARDIOVASCULAR: Reveals a normal S1 and S2. No murmur, rub, or gallop was noted. ABDOMEN: Obese, soft without specific point tenderness. There is no rebound or rigidity. Bowel sounds are normal. EXTREMITIES: Without clubbing, just a trace edema is noted about her ankles. Otherwise, are unremarkable. LABORATORY DATA: Today revealed a normal CBC with a hemoglobin of 12.7, hematocrit 36.8, white count of 7300 with a normal differential. Her sodium is up to 131, potassium is still at 3.0, BUN is 8, creatinine is 0.5. We rechecked her liver functions, and her bilirubin has gone up to 1.8. AST has risen to 83. ALT is up to 159. Her alkaline phosphatase is also elevated at 178. I then checked with her. She said she has had some intermittent epigastric discomfort, and she thought it was related to a hiatal hernia. It tends to be postprandial, she cannot really associate it with any foods. IMPRESSION: 1. Pneumonia, improved. 2. Hyponatremia, improved. 3. Persistent hypokalemia, but gradually getting better. 4. Hypertension. 5. Left pelvic mass, presumed to be teratoma. 6. Rising liver functions with a recent hepatitis screen that was negative. She also had a CT scan done recently that showed no evidence of gallstones, no finding to strongly suggests cholecystitis. Some small cysts were noted at the head of the pancreas of questionable significance. The pancreas is otherwise unremarkable. There was no mention of the liver, but I am assuming that if significant abnormality was noted, that would be included. PLAN: We discussed different options. I think the elevated liver functions are probably going to be related to the antibiotic and possibly cholestasis from them. This needs to be followed closely. The patient would really like to go home. She says she can take her potassium pills at home, just as easy as she can take them here. I am going to increase her potassium to 40 mEq t.i.d. and have her recheck her serum potassium on Monday. I went ahead and discontinued the doxycycline for her possible pneumonia and just use the Augmentin. OB-CHAMBER OF [employer]ER[employer] DIVISION MANAGER consultation will be placed for the pelvic masses, and we will have the hospital place the CT scan images on PACS, so they can be viewed from [place]. If there are other difficulties or new symptoms are noted, to let us know. /[id number] /LARISSA
[2016-09-18] MEDS ORDERED: Amoxicillin/Clavulanate K 500-125 MG Tab PO ONE (12:45)
--- NOTE | 2016-09-19 01:46 | DISCH ---
DISCHARGE DATE: 09/18/2016 REASON FOR ADMISSION: This 75-year-old, female with a history of labile hypertension, hyperlipidemia, obesity, and chronic urinary incontinence was admitted with new onset of fever, chills, diaphoresis, and increased weakness. She had a CBC and UA that was normal in the clinic. Chest x-ray was unremarkable, she was found to be significantly hypokalemic and hyponatremic and because of that, admitted for more aggressive therapy and further workup. Please see copy of her H and P for all the details. LABORATORY DATA: Initial CBC was normal following day, however, her white count remained normal at 5600, her hemoglobin remained stable at 12.7, but she had a left shift. Her D-dimer was somewhat elevated at 1920. Her sodium initially was 123, potassium of 2.5, creatinine was 0.6, BUN of 14. She had a slight elevation in AST, ALT at 65 and 64 respectively, alkaline phosphatase and bilirubin were normal. With fluid restriction and supplementation, gradually her sodium began coming up. Her potassium, however, is difficult to treat, despite large doses of oral potassium, eventually we stopped her chlorthalidone and switched her over to oral Lasix 40 mg every other day for the stasis edema of her lower extremities, thought to be secondary to her amlodipine and hydralazine. With that her sodium has come up to 131, potassium has improved and she has improved considerably. Because of the elevated liver functions and that the fever and chills, CT scan of her chest and abdomen were done. CT scan of her chest revealed evidence of left lower lobe pneumonia. The abdominal CT was unremarkable except for what appeared to be a prominent left pelvic mass with possibly a tooth in it. She has a history of significant GI upset when taking azithromycin, so she was started on ceftriaxone and with that, her white count remained normal. The left shift resolved and she became afebrile. Her blood pressure remained fairly stable and we eventually switch over to Augmentin 500 mg p.o. q.12 hours with food and doxycycline 100 mg p.o. b.i.d. She is feeling much better. She is up and walking, doing much better, but followup comprehensive panel on the day of discharge revealed a sodium 131, potassium at 3.0, creatinine was 0.5. BUN of 8, however, her alkaline phosphatase has risen to 178, bilirubin anjali to 1.8, AST anjali to 83, and ALT to 159. She had a normal CT scan of her liver and gallbladder, we felt that this is probably secondary to cholestasis from a combination of her antibiotics and Crestor she is taking. She did have a hepatitis screen that was entirely normal and she has little or no discomfort in her abdominal area. She is feeling much better and I elected to go ahead and discontinue the doxycycline. We will keep her on the Augmentin for another few days and I am hoping this will resolve. She has been up and walking without difficulties, eating and sleeping well. We decided that she could probably take her potassium pills at home and just be followed as an outpatient. Also arrangements for LOCKSMITH APPRENTICE consultation regarding the pelvic mass were discussed. She was comfortable and doing well. She will be discharged and followed as an outpatient. FINAL DIAGNOSES: 1. Left lower lobe pneumonia. 2. Marked hyponatremia and hypokalemia, presumably secondary to her chlorthalidone. 3. Hypertension. 4. Left pelvic mass, possibly a teratoma. 5. Elevated liver functions presumably secondary to cholestatic jaundice from a combination of her antibiotics and Crestor. 6. History of hyperlipidemia. 7. Obesity. DISCHARGE MEDICATIONS: 1. Augmentin 500 mg p.o. q.12 hours with food for five more days. 2. Atenolol 100 mg daily. 3. Benazepril 40 mg daily. 4. Amlodipine 7.5 mg daily. 5. Hydralazine 25 mg b.i.d. 6. Potassium chloride 40 mEq t.i.d. for the next 2.5 days. 7. Furosemide 40 mg p.o. every 48 hours p.r.n. for swelling of her lower extremities. 8. Calcium carbonate with vitamin D, one b.i.d. 9. Aspirin 81 mg daily. 10.Tylenol 650 mg q.4 hours p.r.n. pain. 11.She takes ketotifen 1 drop in both eyes b.i.d. 12.She is also on a multivitamin daily. 13.Fish oil daily. DISCHARGED DIET: Low-cholesterol, weight reduction. DISCHARGE DISPOSITION: She was discharged in the care of her family. She needs a followup comprehensive panel to evaluate her potassium and liver functions on Monday and we will see her local provider at that time. If there are new symptoms or other difficulties arise, to let us know. /[id number] /LARISSA
== END 2016-09-18 13:42 | disposition home or self-care (01) | DRG 194 ==
LOC: FB.MS 09:48
PROVIDERS: ADMIT Family Medicine; ATTEND Family Medicine
DX: J18.1 Lobar pneumonia, unspecified organism (principal); E87.1 Hypo-osmolality and hyponatremia; R17 Unspecified jaundice; E87.6 Hypokalemia; I10 Essential (primary) hypertension; R79.1 Abnormal coagulation profile; R94.5 Abnormal results of liver function studies; R32 Unspecified urinary incontinence; D48.7 Neoplasm of uncertain behavior of other specified sites; M19.90 Unspecified osteoarthritis, unspecified site; E78.5 Hyperlipidemia, unspecified; E66.9 Obesity, unspecified; Z68.39 Body mass index [BMI] 39.0-39.9, adult; T50.2X5A Adverse effect of carbonic-anhydrase inhibitors, benzothiadiazides and other diuretics, initial encounter; Y92.230 Patient room in hospital as the place of occurrence of the external cause; Z79.82 Long term (current) use of aspirin; Z88.1 Allergy status to other antibiotic agents
CPT/HCPCS: 36415; 71275; 74177; 80048; 80053; 80074; 82150; 85025; 85379; 87040; 87086; 87804; A9270-GY; J0696; J1650; J3480; J7050; Q9967

== ENCOUNTER 2023-03-28 17:04 | Emergency (ER) | payer MEDICARE, OTHER ==
[2023-03-28 18:58] LABS: BASOPHILS ABSOLUTE AUTO 0.1 x10-3/uL (0.0-0.1); BASOPHILS PERCENT AUTO 1.1 % (0.2-1.5); EOSINOPHILS ABSOLUTE AUTO 0.1 x10-3/uL (0.0-0.8); EOSINOPHILS PERCENT AUTO 1.3 % (0.6-8.1); HEMATOCRIT 45.5 % (34.2-48.2); HEMOGLOBIN 15.3 g/dL (11.4-15.5); LYMPHOCYTES ABSOLUTE AUTO 1.9 x10-3/uL (1.0-4.4); LYMPHOCYTES PERCENT AUTO 28.7 % (18.4-52.1); MEAN CORPUSCULAR HEMOGLOBIN 30.6 pg (23.9-33.9); MEAN CORPUSCULAR HGB CONC 33.7 g/dL (31.9-34.8); MEAN CORPUSCULAR VOLUME 90.9 fL (76.7-100.5); MEAN PLATELET VOLUME 7.6 fL (7.1-12.4); MONOCYTES ABSOLUTE AUTO 0.7 x10-3/uL (0.3-1.0); MONOCYTES PERCENT AUTO 10.3 % (4.4-15.7); NEUTROPHILS ABSOLUTE AUTO 3.9 x10-3/uL (1.5-6.3); NEUTROPHILS PERCENT AUTO 58.6 % (30.8-76.2); PLATELET COUNT,PLT 263 x10(3)uL (151-488); RED CELL DISTRIBUTION WIDTH 13.5 % (12.3-16.5); WHITE BLOOD CELL COUNT,WBC 6.7 x10-3/uL (3.0-10.3)
[2023-03-28 19:01] LABS: BLOOD UREA NITROGEN,BUN 12 mg/dL (7-18); CALCIUM 9.6 mg/dL (8.6-10.2); CARBON DIOXIDE,CO2 26 mmol/L (21-32); CHLORIDE,CL 102 mmol/L (100-110); CREATININE 0.6 mg/dL (0.55-1.02); ESTIMATED GFR 91 mL/min (>60); GLUCOSE RANDOM 130 mg/dL (80-116); POTASSIUM,K 3.5 mmol/L (3.5-5.3); SODIUM,NA 138 mmol/L (135-145)
[2023-03-28 19:07] LABS: A/G RATIO 0.8; ALANINE AMINOTRANSFERASE,ALT 27 U/L (12-36); ALBUMIN 3.8 g/dL (3.2-4.6); ALKALINE PHOSPHATASE 74 IU/L (56-112); ASPARTATE AMNIOTRANSFERASE,AST 22 IU/L (5-25); BILIRUBIN TOTAL 0.5 mg/dL (0.1-1.3); PROTEIN TOTAL,TP 8.5 g/dL (6.0-8.0)
[2023-03-28] MEDS: cloNIDine 0.1 MG Tab PO ONE (19:30)
[2023-03-28 20:08] VITALS: BP 161/77; PULSE 74
== END 2023-03-28 19:40 | disposition home or self-care (01) ==
LOC: FB.ED 17:04
DX: I10 Essential (primary) hypertension (principal); M19.90 Unspecified osteoarthritis, unspecified site; E66.9 Obesity, unspecified; Z79.899 Other long term (current) drug therapy; Z79.82 Long term (current) use of aspirin; Z88.1 Allergy status to other antibiotic agents
CPT/HCPCS: 36415; 80053; 83735; 84484; 85025; 93005; 93010; 99283; 99284; A9270-GY